=== PATIENT | female | born 1955 | race Caucasian/White ===

== ENCOUNTER 2017-10-11 11:43 | Emergency (ER) | payer BC ==
[2017-10-11 11:53] VITALS: BP 123/80; PULSE 80; RESP 18; TEMP 98.1; O2SAT 98
--- NOTE | 2017-10-11 12:18 | C.PDOC ---
History Of Present Illness 61 year old female presents to the emergency department with complaints of right knee pain that began after she twisted it yesterday when walking. She denies direct trauma to the area, calf pain, fever, redness, or swelling. Patient states she took Naproxen yesterday with mild relief. Time Seen by Provider: 10/11/17 11:59 Chief Complaint (Nursing): Lower Extremity Problem/Injury History Per: Patient History/Exam Limitations: no limitations Onset/Duration Of Symptoms: Days (1) Severity: Mild - Knee Description Of Injury: Twisted (right knee) Past Medical History Reviewed: Historical Data, Nursing Documentation, Vital Signs Vital Signs: Last Vital Signs Temp 98.1 F 10/11/17 11:51 Pulse 80 10/11/17 11:51 Resp 18 10/11/17 11:51 BP 123/80 10/11/17 11:51 Pulse Ox 98 10/11/17 13:48 - Medical History PMH: HTN Surgical History: No Surg Hx Family History: States: No Known Family Hx - Social History Hx Alcohol Use: No Hx Substance Use: No Review Of Systems Constitutional: Negative for: Fever Musculoskeletal: Positive for: Leg Pain (right knee). Negative for: Other ( calf pain, swelling ) Skin: Negative for: Rash, Other (erythema of the right knee) Neurological: Negative for: Weakness, Numbness Physical Exam - Physical Exam Appears: Well, Non-toxic, In Acute Distress (in mild pain) Skin: Warm, Dry, No Rash, No Other (erythema of the right knee) Head: Normacephalic Eye(s): bilateral: Normal Inspection Oral Mucosa: Moist Neck: Supple Cardiovascular: Rhythm Regular Respiratory: Normal Breath Sounds, No Rales, No Rhonchi, No Wheezing Extremity: Normal ROM (intact at right knee), Tenderness (tenderness to palpation of the right knee), No Calf Tenderness, Capillary Refill (<2 seconds all digits ), No Swelling Extremity: Bilateral: Normal Color And Temperature Pulses: Left Dorsalis Pedis: Normal, Right Dorsalis Pedis: Normal Neurological/Psych: Oriented x3, Normal Sensation Gait: Steady ED Course And Treatment O2 Sat by Pulse Oximetry: 98 (RA) Pulse Ox Interpretation: Normal Progress Note: Xray of rigth knee ordered and reviewed - neg for acute bony injury. Deepak wrap applied to knee by client technologies specialist. Patient given Rxs for Naprosyn and Voltaren gel. She was instructed to follow up with orthopedics within 1 week, and understands she should return to ED if symptoms worsen. Disposition Counseled Patient/Family Regarding: Studies Performed, Diagnosis, Need For Followup, Rx Given - Disposition Referrals: Jorge Duran MD [Staff Provider] - Kodi Alva III, MD [Staff Provider] - [facility] [Outside] Disposition: HOME/ ROUTINE Disposition Time: 12:55 Condition: STABLE Additional Instructions: FOLLOW UP WITH ORTHOPEDICS WITHIN 1 WEEK USE PAIN MEDICATION NEEDED RETURN TO EMERGENCY ROOM IF SYMPTOMS WORSEN Prescriptions: Diclofenac Sodium 1 appl TP BID #1 gel..gram. Naproxen [Naprosyn] 1 tab PO BID PRN #25 tab PRN Reason: Pain Instructions: Knee Sprain (DC) Forms: [employer] (Pashto) Print Language: CANADIAN - Clinical Impression Clinical Impression: Sprain of right knee, Soft tissue injury - Scribe Statement The provider has reviewed the documentation as recorded by the Scribe (Jon Wynn) Provider Attestation: All medical record entries made by the Scribe were at my direction and personally dictated by me. I have reviewed the chart and agree that the record accurately reflects my personal performance of the history, physical exam, medical decision making, and the department course for this patient. I have also personally directed, reviewed, and agree with the discharge instructions and disposition.
--- NOTE | 2017-10-11 14:57 | RAD ---
Right knee three views History: Knee pain. Comparison: None available. Findings: Moderate medial and patellofemoral compartment joint space narrowing. Small suprapatellar joint effusion. No evidence for acute displaced fracture or dislocation. Impression: Moderate medial and patellofemoral compartment joint space narrowing. Small suprapatellar joint effusion. No evidence for acute displaced fracture or dislocation. If pain persists, consider MRI.
== END 2017-10-11 13:19 | disposition home or self-care (01) ==
LOC: C.ER 11:43
DX: S83.91XA Sprain of unspecified site of right knee, initial encounter (principal); X50.1XXA Overexertion from prolonged static or awkward postures, initial encounter; Y93.01 Activity, walking, marching and hiking